=== PATIENT | male | born 1990 | race Caucasian/White ===

== ENCOUNTER 2025-01-16 21:19 | Outpatient (CLI) | payer MEDICAID, SELFPAY | END 2025-01-16 21:20 | disposition home or self-care (01) | PROVIDERS: Visit Provider Internal Medicine | DX: R41.82 Altered mental status, unspecified (principal); T48.3X1A Poisoning by antitussives, accidental (unintentional), initial encounter; Y92.9 Unspecified place or not applicable | CPT/HCPCS: A0425; A0429 ==

== ENCOUNTER 2025-01-16 21:44 | Observation (INO) | payer MEDICAID, SELFPAY ==
[2025-01-16 21:49] VITALS: BP 148/100; PULSE 130; RESP 18; TEMP 37.1; O2SAT 97; BMI 32.1
--- NOTE | 2025-01-16 22:04 | ED.NURSE ---
Called poison control and they state to watch pt for 8 hours+ until pt returns back to baseline. Doctor should order overdose labs and check an EKG. PRN benzo's should be ordered for any agitation. Possible QRS widening due to taking Seroquel and DMX together.
--- OUTSIDE RECORDS SUMMARY | 2025-01-16 22:04 | XMS_ITS | Clinical Summary ---
Author Organization [facility] Address [address] [place] [id number] Care Team Providers Care Meat Cutting Teacher Name Role Phone Taylor Lester MD Primary Care Provider Un available Allergies No known active allergies Social History Tobacco Use Types Packs/Day Years Used Date Smoking Tobacco: Never Assessed Sex and Gender Information Value Date Recorded Sex Assigned at Not on file Legal Sex Male 1:42 PM DIVERSIFIED CROPS SUPERVISOR Gender Identity Not on file Sexual Orientation Not on file Last Filed Vital Signs Vital Sign Reading Time Taken Comments Blood Pressure 155/99 07/08/2022 4:57 PM DIVERSIFIED CROPS SUPERVISOR Pulse 106 07/08/2022 4:57 PM DIVERSIFIED CROPS SUPERVISOR Temperature 37.4 C (99.3 F) 07/08/2022 1:46 PM DIVERSIFIED CROPS SUPERVISOR Respiratory Rate 15 07/08/2022 1:46 PM DIVERSIFIED CROPS SUPERVISOR Oxygen Saturation 96% 07/08/2022 4:57 PM DIVERSIFIED CROPS SUPERVISOR Inhaled Oxygen Concentration - - Weight - - Height - - Body Mass Index - - Plan of Treatment Health Maintenance Due Date Last Done Comments Hepatitis C Screening 1989 Lipid Screening 1989 Anxiety Screening (BERTHA-2) 1990 Depression Assessment (PHQ-2) 1990 COVID-19 Vaccine (2 - 2023-2 5 season) 2024 08/02/2021 Influenza Vaccine (Season Ended) 2025 Adult Tetanus Booster 08/29/2026 08/29/2016 RSV Vaccines (1 - 1-dose 75+ series) 02/29/2064 Meningococcal B Vaccine Aged Out No l onger eligible based on patient's age to complete this topic Pneumococcal Vaccine Aged Out No long er eligible based on patient's age to complete this topic Care Teams Meat Cutting Teacher Relationship Specialty Start Date End Date Taylor Lester MD PCP - General 07/08/22
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
--- OUTSIDE RECORDS SUMMARY | 2025-01-16 22:04 | XMS_ITS | Referral Summary ---
Author Organization [facility] Address [address] [place] [id number] Care Team Providers Care Sales Representative Aircraft Name Role Phone Taylor Lester MD Primary Care Provider Un available Allergies No known active allergies Social History Tobacco Use Types Packs/Day Years Used Date Smoking Tobacco: Never Assessed Sex and Gender Information Value Date Recorded Sex Assigned at Not on file Legal Sex Male 1:42 PM POST DOCTORAL RESEARCHER Gender Identity Not on file Sexual Orientation Not on file Last Filed Vital Signs Vital Sign Reading Time Taken Comments Blood Pressure 155/99 07/08/2022 4:57 PM POST DOCTORAL RESEARCHER Pulse 106 07/08/2022 4:57 PM POST DOCTORAL RESEARCHER Temperature 37.4 C (99.3 F) 07/08/2022 1:46 PM POST DOCTORAL RESEARCHER Respiratory Rate 15 07/08/2022 1:46 PM POST DOCTORAL RESEARCHER Oxygen Saturation 96% 07/08/2022 4:57 PM POST DOCTORAL RESEARCHER Inhaled Oxygen Concentration - - Weight - - Height - - Body Mass Index - - Plan of Treatment Not on file Care Teams Sales Representative Aircraft Relationship Specialty Start Date End Date Taylor Lester MD PCP - General 07/08/22
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
[2025-01-16 22:05] VITALS: O2SAT 98
--- NOTE | 2025-01-16 22:07 | ED_ITS ---
HPI - General Adult General Chief complaint: Altered Mental Status Stated complaint: AMS Time Seen by Provider: 01/16/25 21:45 History of Present Illness HPI narrative: 34-year-old male with a history of depression anxiety, alcohol use currently in a sober house. The patient reportedly was found in someone else's car, was seeming agitated. He reports that he for a cold he was taking dextromethorphan. He also takes Seroquel, trazodone, hydroxyzine. He denies drinking alcohol or Tylenol, aspirin, or other street drugs. The patient has been very cooperative he has been diaphoretic, a little bit agitated. Poison controlled was called and they felt like this would match a dextromethorphan issue, especially in light of his other medications they recommended an 8-12 hour observation. At least and IV fluid, benzodiazepines as needed. Patient denies other specific health problems. 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. Related Data Home Medications ?Medication ?Instructions ?Recorded ?Confirmed buspirone 5 mg tablet 7.5 mg PO BID 01/17/2501/17 clonidine HCl 0.1 mg tablet 0.1 mg PO BID 01/17/2504/05 hydroxyzine HCl 25 mg tablet 25 mg PO BID 01/17/2504/05 quetiapine 200 mg tablet,extended 200 mg PO ONCE PM 01/17/25 release 24 hr (Seroquel XR) trazodone 50 mg tablet 50 mg PO QHS PRN 01/17/25 Allergies Allergy/AdvReac Type Severity Reaction Status Date / Time No Known Drug Allergies Allergy Verified 01/16/25 21:54 Review of Systems Status of ROS: Reports: 6 or more systems reviewed and unremarkable except as noted in History and below [facility] Medical History (Updated 01/17/25 @ 14:31 by Charisse Macias MD) Anxiety ?F41.9 - Anxiety disorder, unspecified (ICD-10) Migraine headache (07/18/11) ?G43.909 - Migraine, unspecified, not intractable, without status migrainosus (ICD-10) Family History (Updated 01/17/25 @ 00:28 by Charisse Macias MD) Father Prostate cancer Aunt Breast cancer Mother Breast cancer Ovarian cancer Social History (Updated 01/17/25 @ 14:25 by Charisse Macias MD) Narrative: Sober from alcohol x 2 years. 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 Living in a sober house in [place]. Denies recreational drug use. What is your current living situation?: I presently have a place to live Problems where you live: no known problems Problems where you live details: n/a In the past 12 months, utilities in danger of being shut off: no In past 12 months, lack of transportation kept you from medical appts, meetings, work, or getting things needed for daily living: no In the past 12 mos, have been you worried that your food would run out before you had money to buy more?: never true In the past 12 mos, the food you bought just didn't last and you didn't have money to buy more?: never true Highest level of school completed/degree received: Master's degree Smoking Status: Current every day smoker Do you use any of these nicotine containing products: Vaping Products How often do you have a drink containing alcohol: never AUDIT-C Alcohol total score: 0 Non-prescribed substance use: denies use and other Non-prescribed substance use details: Robitussin over the counter Caffeine: Yes How often does anyone, including family, friends and others, physically hurt you : never How often does anyone, including family, friends and others, insult or talk down to you: never How often does anyone, including family, friends and others, threaten you with harm: never How often does anyone, including family, friends and others, scream or curse at you: never service: No Exam Narrative: Exam Narrative: Objective: Patient is afebrile, pulse elevated 130, he has got dry mucous membranes in the mouth he is alert orient x3 slightly agitated but very cooperative. Respirations 18 his blood pressure 148/100 O2 sat 97% on room air HEENT is unremarkable no facial asymmetry no scleral icterus mouth clear slightly dry Neck is supple Chest clear Heart tachycardic rhythm 2/6 systolic murmur Abdomen soft nontender Extremities he has got some blisters on the soles of his feet. He is neurologically nonfocal, no tremor. Const: Vital Signs, click to edit/add: Vital Signs - 24 hr 01/16/25 21:49 01/16/25 22:05 Temperature 98.8 F Pulse Rate [Right Pulse Oximeter] 130 H Respiratory Rate 18 Blood Pressure [Ri ght Upper Arm] 148/100 H Pulse Oximetry 97 98 Oxygen Delivery Me thod Room Air Course Vital Signs Vital signs: Initial Vital Signs Temperature 98.8 F 01/16/25 21:49 Temperature Source Temporal Artery Scan 01/16/25 21:49 Pulse Rate 130 H 01/16/25 21:49 Pulse Rhythm Regular 01/16/25 21:49 Pulse Strength 3+ Normal 01/16/25 21:49 Respiratory Rate 18 01/16/25 21:49 Blood Pressure 148/100 H 01/16/25 21:49 Blood Pressure Mean 116 H 01/16/25 21:49 Blood Pressure Position Sitting 01/16/25 21:49 Pulse Oximetry 97 01/16/25 21:49 Oxygen Delivery Method Room Air 01/16/25 21:49 Vital Signs Temperature 98.8 F 01/16/25 21:49 Pulse Rate 130 H 01/16/25 21:49 Respiratory Rate 18 01/16/25 21:49 Blood Pressure 148/100 H 01/16/25 21:49 Pulse Oximetry 97 01/16/25 21:49 Oxygen Delivery Method Room Air 01/16/25 21:49 Temperature 97.9 F 01/17/25 07:00 Pulse Rate 100 01/17/25 07:00 Respiratory Rate 18 01/17/25 07:00 Blood Pressure 150/83 H 01/17/25 07:00 Pulse Oximetry 95 01/17/25 07:00 Oxygen Delivery Method Room Air 01/17/25 07:00 Medications Administered Medications: Discontinued Medications Generic Name Dose Route Start Last Admin Trade Name Freq PRN Reason Stop Dose Admin Sodium Chloride 1,000 mls @ 6,000 mls/hr 01/16/25 22:15 01/16/25 23:27 0.9 % Sodium Chloride 1000 Ml IV 01/16/25 22:24 Infused .Q10M ANDREA Infusion Lorazepam 1 mg 01/16/25 22:04 01/16/25 23:00 Lorazepam 1 Mg Tablet PO 01/16/25 22:05 1 mg ONCE ONE Administration Potassium Bicarbonate 25 meq 01/17/25 00:30 01/17/25 00:56 Potassium Bicarb 25 Meq Effervescent Tab PO 01/17/25 00:31 25 meq ONCE ONE Administration Medical Decision Making MDM Narrative Medical decision making narrative: [age] year white male with a probable dextromethorphan over dose, non intentional. The patient takes other antidepressant medications. Discussing with poison Control they feel this is probably the cause of his symptoms. Will check a urine tox, serum Tylenol, aspirin, urine drug screen. Will give IV fluid, 1 mg oral benzodiazepine Ativan. Patient will need cardiac monitoring as well as an EKG laboratory studies and reassessment. I suspect we can admit him to our hospital here for observation. Given his length of need observation I think probable hospital floor be appropriate. Will discuss with hospitalist. Lab Data Labs: Lab Results 01/16/25 01/16/25 Range/Units 22:15 22:38 WBC 8.71 (4.50-11.00) K/uL RBC 5.89 (4.30-5.90) m/uL Hgb 15.5 (13.5-17.5) gm/dL Hct 47.4 (37.0-53.0) % MCV 81 (80-100) fL MCH 26 (26-34) pg MCHC 33 (32-36) gm/dL RDW Coeff of Sangeeta 15.6 H (11.5-15.5) % Plt Count 256 (140-440) K/uL Neut % (Auto) 76.3 H (42.0-72.0) % Lymph % (Auto) 17.3 L (20-44) % Ceiba % (Auto) 4.8 (0.0-11.0) % Eos % (Auto) 0.7 (0.0-7.0) % Baso % (Auto) 0.6 (0.0-3.0) % Neut # (Auto) 6.60 (1.7-7.0) K/uL Lymph # (Auto) 1.50 (0.90-2.90) K/uL Ceiba # (Auto) 0.40 (0.00-0.90) K/UL Eos # (Auto) 0.06 (0.00-0.50) K/uL Baso # (Auto) 0.05 (0.00-0.30) K/uL Abs Immat Gran (auto) 0.03 (0.00-0.30) K/uL Imm/Tot Granulo (auto) 0.3 % Sodium 143 (135-149) mmol/L Potassium 3.5 L (3.6-5.1) mmol/L Chloride 114 (96-114) mmol/L Carbon Dioxide 23 (20-32) mmol/L Anion Gap 6 L (7-15) mEq/L BUN 39 H (5-24) mg/dL Creatinine 0.9 (0.5-1.5) mg/dL Estimated Creat Clear 122.01 Estimated GFR 114 ml/min Glucose 150 H (60-115) mg/dL Lactate 1.0 (0.5-1.9) mmol/L Calcium 9.5 (8.4-10.6) mg/dL Total Bilirubin 0.6 (0.1-1.5) mg/dL Direct Bilirubin 0.3 (0.0-0.5) mg/dL AST 43 H (12-35) U/L ALT 36 (4-50) U/L Alkaline Phosphatase 80 (40-150) U/L C-Reactive Protein < 0.5 L (0.5-1.0) mg/dL Total Protein 7.8 (6.0-8.3) g/dL Albumin 4.9 (3.3-5.0) g/dL Salicylates < 1.0 L (1.0-10) mg/dL Urine Opiates Screen Negative (Negative) Ur Oxycodone Screen Negative (Negative) Urine Methadone Screen Negative (Negative) Acetaminophen < 10.0 (10.0-30.0) ug/mL Ur Barbiturates Screen Negative (Negative) U Tricyclic Antidepress Negative (Negative) Ur Phencyclidine Scrn Negative (Negative) Ur Amphetamines Screen Negative (Negative) U Methamphetamines Scrn Negative (Negative) U Benzodiazepines Scrn Negative (Negative) Urine Cocaine Screen Negative (Negative) U Marijuana (THC) Screen Negative (Negative) Ur Drug Screen Comment See Note Ethyl Alcohol < 0.01 (0.01-0.03) % Discharge Plan Discharge Condition: Improved Activity Level: No Restrictions Discharge Diet: Regular
[2025-01-16 22:24] LABS: Basophils Absolute Auto 0.05 K/uL (0.00-0.30); Basophils Percent Auto 0.6 % (0.0-3.0); Eosinophils Absolute Auto 0.06 K/uL (0.00-0.50); Eosinophils Percent Auto 0.7 % (0.0-7.0); Hematocrit 47.4 % (37.0-53.0); Hemoglobin* 15.5 gm/dL (13.5-17.5); Immature Granulocytes Abs Auto 0.03 K/uL (0.00-0.30); Immature Granulocytes Pct Auto 0.3 %; Lymphocytes Percent Auto 17.3 % (20-44); Mean Corpuscular HGB Conc 33 gm/dL (32-36); Mean Corpuscular Hemoglobin 26 pg (26-34); Mean Corpuscular Volume 81 fL (80-100); Monocytes Percent Auto 4.8 % (0.0-11.0); Neutrophils Percent Auto 76.3 % (42.0-72.0); Platelet Count* 256 K/uL (140-440); RDW Coefficient of Variation % 15.6 % (11.5-15.5); Red Blood Count 5.89 m/uL (4.30-5.90); White Blood Count* 8.71 K/uL (4.50-11.00)
[2025-01-16 22:27] VITALS: PULSE 110; RESP 14; O2SAT 96
[2025-01-16 22:27] LABS: Slide Review Reflex No
[2025-01-16 22:30] VITALS: PULSE 111; RESP 18; O2SAT 96
[2025-01-16 22:35] VITALS: BP 139/93
[2025-01-16 22:36] LABS: Albumin* 4.9 g/dL (3.3-5.0); Chloride* 114 mmol/L (96-114)
[2025-01-16 22:37] LABS: Potassium* 3.5 mmol/L (3.6-5.1); Sodium* 143 mmol/L (135-149)
[2025-01-16 22:39] LABS: Blood Urea Nitrogen* 39 mg/dL (5-24); Creatinine* 0.9 mg/dL (0.5-1.5); Est. Creatinine Clearance* 122.01; Estimated Glomerular Filt Rate 114 ml/min
[2025-01-16 22:40] LABS: Alanine Aminotransferase* 36 U/L (4-50); Alkaline Phosphatase* 80 U/L (40-150); Aspartate Amino Transferase* 43 U/L (12-35); Bilirubin Direct* 0.3 mg/dL (0.0-0.5); Bilirubin Total* 0.6 mg/dL (0.1-1.5); Calcium* 9.5 mg/dL (8.4-10.6); Carbon Dioxide* 23 mmol/L (20-32); Glucose* 150 mg/dL (60-115); Total Protein* 7.8 g/dL (6.0-8.3)
[2025-01-16 22:46] LABS: Acetaminophen* < 10.0 ug/mL (10.0-30.0); Anion Gap 6 mEq/L (7-15); C Reactive Protein* < 0.5 mg/dL (0.5-1.0); Ethanol* < 0.01 % (0.01-0.03); Salicylate* < 1.0 mg/dL (1.0-10)
[2025-01-16 22:54] LABS: Amphetamine Screen Urine Negative (Negative); Barbiturate Screen Urine Negative (Negative); Benzodiazepines Screen Urine Negative (Negative); Cannabinoid Screen Urine Negative (Negative); Cocaine Screen Urine Negative (Negative); Methadone Screen Urine Negative (Negative); Methamphetamines Screen Urine Negative (Negative); Opiate Screen Urine Negative (Negative); Oxycodone Screen Urine Negative (Negative); Phencyclidine Screen Urine Negative (Negative); Tricyclic Antidepressant Urine Negative (Negative)
[2025-01-16] MEDS: 0.9 % SODIUM CHLORIDE 1000 ml 1,000 ML 6000 ML IV (22:59)
[2025-01-16] MEDS: LORazepam 1 MG TABLET PO (23:00)
--- NOTE | 2025-01-17 00:25 | P.IMHP_ITS ---
Assessment and Plan Assessment and plan (1) Poisoning by dextromethorphan: Status: Acute (2) Toxic encephalopathy: Status: Acute (3) Agitation: Status: Acute (4) Noncompliance with medications: Status: Acute Plan 34 y/o male with h/o alcohol abuse who was noncompliant with both prescription and OTC medications, overdosing on these causing toxic encephalopathy and agitation. He was also tachycardic. These symptoms have resolved and he appears to be back to his usual self. He denies thoughts of self-harm or suicidal ideation. He contracts for safety. I have spoken with poison Control who recommends monitoring on cardiac telemetry for 4 more hours and an EKG in 2 more hours. I have also ordered a social work consult for the morning. Hospitalist- H&P: HPI History of Present Illness Time Seen by Provider: 23:57 Date Seen: 01/16/25 Chief complaint: AMS Narrative: Boyd Krishnan is a 34 year old male with h/o anxiety and 2 years sobriety from alcohol presented through the emergency department tonight for confusion and agitation. He was apparently found in someone's car quite agitated and the police were called. He tells me that when he was drinking many years ago he used to have periods where he would black out, but he had never had anything like what he experienced today. He ran out of his BuSpar and trazodone 3 days ago and has had trouble getting them through [employer], the sobriety program he is in. He tells me that they should be in by Saturday. Because of running out of those medications he has felt off his routines and had trouble sleeping. He also has a cold and started taking dextromethorphan for that. Last night he took at least double his usual dose of seroquel, hoping it would help him sleep. Because he was off my routines, he does not know how much of his other medications or dextromethorphan he took, but acknowledges it was likely more than it should have been. He repeatedly told me that he felt really confused and off my routines over the last 2-3 days, and that this was much worse today. He recalls walking to the [employer] and then to [place]. He says people seemed weird and it seemed like he was in a story in that things were not real. He denies any blackouts and said that he recalls everything. He felt anxious, scared, and paranoid. Then at 1 point he found himself in someone's house and then the police were called and put him in handcuffs. By the time the nurse chemical dependency came and brought him to the emergency department, he felt like he was finally deescalating and becoming himself, in touch with reality again. Now he feels back to his usual self. He denies any thoughts of self-harm or suicide. He was not trying to harm himself by taking extra Seroquel, only trying to get s ome sleep. He notes that he has intensive outpatient therapies Saturday through with the program that he is in. His primary therapist is Tran Chaparro, and that he would definitely be discussing this episode with his therapists this week. Review of Systems Status of ROS: Reports: 10 or more systems reviewed and unremarkable except as noted in History and below Medical Decision Making Medical Decision Making Code Status: FULL CODE [facility] Medical History (Updated 01/17/25 @ 14:31 by Charisse Macias MD) Anxiety ?F41.9 - Anxiety disorder, unspecified (ICD-10) Migraine headache (07/18/11) ?G43.909 - Migraine, unspecified, not intractable, without status migrainosus (ICD-10) Family History (Updated 01/17/25 @ 00:28 by Charisse Macias MD) Father Prostate cancer Aunt Breast cancer Mother Breast cancer Ovarian cancer Social History (Updated 01/17/25 @ 14:25 by Charisse Macias MD) Narrative: Sober from alcohol x 2 years. 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 Living in a sober house in [place]. Denies recreational drug use. What is your current living situation?: I presently have a place to live Problems where you live: no known problems Problems where you live details: n/a In the past 12 months, utilities in danger of being shut off: no In past 12 months, lack of transportation kept you from medical appts, meetings, work, or getting things needed for daily living: no In the past 12 mos, have been you worried that your food would run out before you had money to buy more?: never true In the past 12 mos, the food you bought just didn't last and you didn't have money to buy more?: never true Highest level of school completed/degree received: Master's degree Smoking Status: Current every day smoker Do you use any of these nicotine containing products: Vaping Products How often do you have a drink containing alcohol: never AUDIT-C Alcohol total score: 0 Non-prescribed substance use: denies use and other Non-prescribed substance use details: Robitussin over the counter Caffeine: Yes How often does anyone, including family, friends and others, physically hurt you : never How often does anyone, including family, friends and others, insult or talk down to you: never How often does anyone, including family, friends and others, threaten you with harm: never How often does anyone, including family, friends and others, scream or curse at you: never service: No Meds Home Medications and Allergies Home Medications ?Medication ?Instructions ?Recorded ?Confirmed ?Type buspirone 5 mg tablet 7.5 mg PO BID 01/17/2501/17 History clonidine HCl 0.1 mg tablet 0.1 mg PO BID 01/17/2504/05 History hydroxyzine HCl 25 mg tablet 25 mg PO BID 01/17/2504/05 History quetiapine 200 mg tablet,extended 200 mg PO ONCE PM 01/17/25 History release 24 hr (Seroquel XR) trazodone 50 mg tablet 50 mg PO QHS PRN 01/17/25 History Allergies Allergy/AdvReac Type Severity Reaction Status Date / Time No Known Drug Allergies Allergy Verified 01/16/25 21:54 Exam Narrative: Exam Narrative: General: No acute distress. Awake alert oriented x3. No diaphoresis. No tremor. HEENT: Normocephalic atraumatic, pupils equally round and reactive to light and accommodation. Oropharynx clear. Mucous membranes are moist. No cervical lymphadenopathy, thyromegaly or carotid bruits. No JVD. Cardiovascular: Regular rate and rhythm. No murmurs, gallops, or rubs. Chest: No increased work of breathing. Clear to auscultation bilaterally. No crackles or wheezes. Abdomen: Bowel sounds present. Soft, nondistended, nontender. No hepatosplen omegaly or masses. Extremities: No edema, no cyanosis or clubbing. Skin: No jaundice, no pallor, no rashes on visible skin. Neuro: Grossly intact. No focal deficits. Const: Vital Signs, click to edit/add: Vital Signs - 24 hr 01/16/25 21:49 01/16/25 22:05 01/16/25 22:27 Temperature 98.8 F Pulse Rate 110 H Pulse Rate [Right Pulse Oximeter] 130 H Respiratory Rate 18 14 Blood Pressure Blood Pressure [Ri ght Upper Arm] 148/100 H Pulse Oximetry 97 98 96 Oxygen Delivery [facility] 01/16/25 22:30 01/16/25 22:35 Temperature Pulse Rate 111 H Pulse Rate [Right Pulse Oximeter] Respiratory Rate 18 Blood Pressure 139/93 H Blood Pressure [Ri ght Upper Arm] Pulse Oximetry 96 Oxygen Delivery [facility] Hospitalist - H&P: Result Labs Labs: Short CBC 01/16/25 Range/Units 22:15 WBC 8.71 (4.50-11.00) K/uL Hgb 15.5 (13.5-17.5) gm/dL Hct 47.4 (37.0-53.0) % Plt Count 256 (140-440) K/uL BMP 01/16/25 22:15 Sodium 143 Potassium 3.5 L Chloride 114 Carbon Dioxide 23 BUN 39 H Creatinine 0.9 Glucose 150 H Calcium 9.5 Liver Function 01/16/25 Range/Units 22:15 Total Bilirubin 0.6 (0.1-1.5) mg/dL Direct Bilirubin 0.3 (0.0-0.5) mg/dL AST 43 H (12-35) U/L ALT 36 (4-50) U/L Alkaline Phosphatase 80 (40-150) U/L Albumin 4.9 (3.3-5.0) g/dL 01/16/2025 EKG: Sinus tachycardia, 110 beats per minute, possible left atrial enlargement, left anterior fascicular block. QTC interval 462 milliseconds.
[2025-01-17 00:49] VITALS: BP 137/99; PULSE 105; RESP 18; TEMP 36.6; O2SAT 96
[2025-01-17 00:56] VITALS: O2SAT 96
[2025-01-17] MEDS: POTASSIUM BICARB 25 MEQ EFFERVESCENT TAB PO (00:56)
[2025-01-17 03:25] VITALS: BP 145/100; PULSE 70; RESP 18; TEMP 36.6; O2SAT 98
[2025-01-17 04:54] VITALS: BMI 32.5
--- NOTE | 2025-01-17 06:21 | PC.NURSE ---
arrived to the floor at 2340 via wheelchair. A&O pleasant and cooperative. Denies pain. Pt reports some anxiety going along with the events that occurred last evening but able to settle in room and get some sleep. Up at jennifer. Using call light appropriately.
[2025-01-17 06:37] LABS: Potassium* 3.7 mmol/L (3.6-5.1)
[2025-01-17 07:00] VITALS: BP 150/83; PULSE 100; PULSE 90; RESP 18; TEMP 36.6; O2SAT 95
--- NOTE | 2025-01-17 10:05 | PM.DS1 ---
DS: Providers Provider Date Seen: 01/17/25 Date of admission: 01/16/25 23:36 Primary care physician: Not a Local Provider Admitting Clinician: Charisse Macias MD Consults: 01/17/25 00:27 Consult to Child Care Specialist [CONS] Routine Comment: Reason for Consult:: Social Service Consult Attending Physician on discharge: Juan Stockton MD Date of Discharge: 01/17/25 DS: Summary Hospital Course Hospital Course: ED HPI: 34-year-old male with a history of depression anxiety, alcohol use currently in a sober house. The patient reportedly was found in someone else's car, was seeming agitated. He reports that he for a cold he was taking dextromethorphan. He also takes Seroquel, trazodone, hydroxyzine. He denies drinking alcohol or Tylenol, aspirin, or other street drugs. The patient has been very cooperative he has been diaphoretic, a little bit agitated. Poison controlled was called and they felt like this would match a dextromethorphan issue, especially in light of his other medications they recommended an 8-12 hour observation. At least and IV fluid, benzodiazepines as needed. Patient denies other specific health problems. 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 Poison control was contacted and observation completed. He reports being completely asymptomatic at this time. Additional history: Patient has a history of alcoholism and went through treatment 2 years ago. He reports being sober since that time. He has a longstanding history of abuse of dextromethorphan and has had many emergency department visits for this over the years. He went through treatment for that about 6 months ago. He reports no ideation or intent of self-harm. He is currently living in a sober house in [place]. Status at Discharge Overall status at discharge: patient is back to baseline Time Spent with Patient Time attestation: Total time spent providing and/or coordinating discharge services: 45 minutes Time spent: Greater than 30 minutes Specific discharge activities: Reviewing outside records and discussing with patient ongoing evaluation and management of substance use disorder Exam Narrative: Exam Narrative: He is alert appears in no distress. Speech is fluent. He is oriented to his circumstances. Breathing is unlabored. He moves all 4 extremities well. Const: Vital Signs, click to edit/add: Vital Signs - 24 hr 06/07/25 21:49 01/16/25 22:05 01/16/25 22:27 Temperature 98.8 F Pulse Rate 110 H Pulse Rate [Pulse Oximeter] Pulse Rate [Right Pulse Oximeter] 130 H Respiratory Rate 18 14 Blood Pressure Blood Pressure [Le ft Arm] Blood Pressure [Ri ght Upper Arm] 148/100 H Pulse Oximetry 97 98 96 Oxygen Delivery Me thod Room Air 01/16/25 22:30 01/16/25 22:35 01/17/25 00:49 Temperature 97.8 F Pulse Rate 111 H Pulse Rate [Pulse Oximeter] 105 H Pulse Rate [Right Pulse Oximeter] Respiratory Rate 18 18 Blood Pressure 139/93 H Blood Pressure [Le ft Arm] 137/99 H Blood Pressure [Ri ght Upper Arm] Pulse Oximetry 96 96 Oxygen Delivery Me thod Room Air 01/17/25 00:56 01/17/25 03:25 Temperature 97.9 F Pulse Rate Pulse Rate [Pulse Oximeter] 70 Pulse Rate [Right Pulse Oximeter] Respiratory Rate 18 Blood Pressure Blood Pressure [Le ft Arm] 145/100 H Blood Pressure [Ri ght Upper Arm] Pulse Oximetry 96 98 Oxygen Delivery Me thod Room Air Documenting provider has reviewed patient's vital signs: yes DS: Data Data Completed and Pending Labs on day of discharge: Labs from last 24 hours 01/17/25 01/16/25 01/16/25 05:39 22:38 22:15 WBC 8.71 RBC 5.89 Hgb 15.5 Hct 47.4 MCV 81 MCH 26 MCHC 33 RDW Coeff of Sangeeta 15.6 H Plt Count 256 Neut % (Auto) 76.3 H Lymph % (Auto) 17.3 L [place] % (Auto) 4.8 Eos % (Auto) 0.7 Baso % (Auto) 0.6 Neut # (Auto) 6.60 Lymph # (Auto) 1.50 [place] # (Auto) 0.40 Eos # (Auto) 0.06 Baso # (Auto) 0.05 Abs Immat Gran (auto) 0.03 Imm/Tot Granulo (auto) 0.3 Sodium 143 Potassium 3.7 3.5 L Chloride 114 Carbon Dioxide 23 Anion Gap 6 L BUN 39 H Creatinine 0.9 Estimated Creat Clear 122.01 Estimated GFR 114 Glucose 150 H Lactate 1.0 Calcium 9.5 Total Bilirubin 0.6 Direct Bilirubin 0.3 AST 43 H ALT 36 Alkaline Phosphatase 80 C-Reactive Protein < 0.5 L Total Protein 7.8 Albumin 4.9 Salicylates < 1.0 L Urine Opiates Screen Negative Ur Oxycodone Screen Negative Urine Methadone Screen Negative Acetaminophen < 10.0 Ur Barbiturates Screen Negative U Tricyclic Antidepress Negative Ur Phencyclidine Scrn Negative Ur Amphetamines Screen Negative U Methamphetamines Scrn Negative U Benzodiazepines Scrn Negative Urine Cocaine Screen Negative U Marijuana (THC) Screen Negative Ur Drug Screen Comment See Note Ethyl Alcohol < 0.01 Discharge Plan Discharge Disposition: Home, Self-Care Date of Admission: 01/16/25 23:36 Attending Provider on Discharge: Xiang Stockton Primary Care Provider: Provider,Not a Local Condition: Improved Anticipated Discharge Date/Time: 01/17/25 10:10 Discharge Medications: Continued buspirone 5 mg tablet 7.5 mg PO BID quetiapine [Seroquel XR] 200 mg tablet extended release 24 hr 200 mg PO ONCE PM Rx Instructions: administer on day 3 of therapy trazodone 50 mg tablet 50 mg PO QHS PRN hydroxyzine HCl 25 mg tablet 25 mg PO BID clonidine HCl 0.1 mg tablet 0.1 mg PO BID Discharge Orders: Discharge Order (Routine); Ordered 01/17/25 Ordered By: Xiang Stockton Additional Instructions: I recommend you consider ongoing outpatient assistance with maintaining sobriety from both alcohol and dextromethorphan. Activity Level: No Restrictions Discharge Diet: Regular Follow Up Appointments: Provider,Not a Local [Primary Care Provider, Family Practice] Forms: [facility] Info Instructions
== END 2025-01-17 11:55 | disposition home or self-care (01) ==
LOC: ED 22:02 → MEDSURG 23:36
PROVIDERS: Admitting Provider Family Medicine; Emergency Provider Family Medicine; Visit Provider Family Medicine
DX: T48.3X1A Poisoning by antitussives, accidental (unintentional), initial encounter (principal); G92.9 Unspecified toxic encephalopathy; R45.1 Restlessness and agitation; Z91.148 Patient's other noncompliance with medication regimen for other reason; R00.0 Tachycardia, unspecified; F41.9 Anxiety disorder, unspecified; Z72.0 Tobacco use; F19.90 Other psychoactive substance use, unspecified, uncomplicated
CPT/HCPCS: 36415; 80048; 80076; 80143; 80179; 80306; 82077; 83605; 84132; 85025; 86140; 93005; 94761; 99285; A9270; G0378; J7030

== ENCOUNTER 2025-08-11 00:58 | Emergency (ER) | payer MEDICAID, SELFPAY ==
--- OUTSIDE RECORDS SUMMARY | 2025-08-11 01:00 | XMS_ITS | Clinical Summary ---
Author Organization [facility] Address [facility] [place] [address] Care Team Providers Care Office Automation Technician Name Role Phone No Ref-Primary, Physician Primary Care Provider Allergies No known active allergies Medications * This document contains information received from the source organization and may not represent a complete record from that organization. No known medications Active Problems ProblemNoted DateDiagnosed DateElevated blood-pressure reading, without diagnosis of dhmvqcrsukxo55/06/2017Burn of second degree of left lower leg, initial /06/2017Migraine foxgsoen37/07/2011 Overview (09/02/2022): BUTALBITAL COMPOUND W/CODEINE 24-15-584-40 mg FH: Father Social History Tobacco UseTypesPacks/DayYears UsedDateSmoking Tobacco: Never AssessedAdolescent EducationAnswerDate RecordedGetting School Help NeededNot on file05/04/2023Sex and Gender InformationValueDate RecordedSex Assigned at BirthNot on fileLegal LgtIwvv1209/02/2022 12:40 PM CSTGender IdentityNot on fileSexual OrientationNot on file Last Filed Vital Signs Vital SignReadingTime TakenCommentsBlood Hudgjodo944/9310/08/2023 5:43 PM [facility] Lbxxj82916/27/2024 5:43 PM VRUCuakyfvzopb49.3 ??C (99.2 ??F)10/08/2023 5:43 PM CSTRespiratory Vizu484610/08/2023 5:43 PM CSTOxygen Biwbdeirhh96%10/08/2023 5:43 PM CSTInhaled Oxygen Concentration--Izbddu889.3 kg (230 lb)10/08/2023 5:43 PM LVMIehmto402.3 cm (5' 11)10/08/2023 5:43 PM CSTBody Mass Index32.0810/08/2023 5:43 PM [facility] SE[facility]ER Plan of Treatment Health MaintenanceDue DateLast DoneCommentsADVANCE CARE ZBHTTAOR1989ANNUAL REVIEW OF HM OEMXIF26 1989YEARLY PREVENTIVE VISIT02/29/1992HIV SCREENING 02/29/2004HEPATITIS C EFVAVLLFS55/20/2007PHQ-2 (once per calendar year) 5COVID-19 VACCINE ( season)/, 08/02/2021, 11/12/2020, Additional history existsINFLUENZA VACCINE (#1)/, 08/25/2009DIABETES TIJTMKEZI32/22/189231/3DTAP/TDAP/TD VACCINE (8 - Td or Tdap)/, 08/29/2016, 08/25/2002, Additional history exists ZOSTER VACCINE (1 of 2)2039HEPATITIS B DDFWWTYQnywzmgzl68/02/2001, 03/20/2000, 01/26/2000HPV VACCINE (No Doses Required)CompletedMENINGITIS VACCINE Aged OutNo longer eligible based on patient's age to complete this topic PNEUMOCOCCAL VACCINE: PEDIATRICS (0 to 5 YEARS) AND AT-RISK PATIENTS (6 to 49 YEARS)Aged OutNo longer eligible based on patient's age to complete this topic Procedures Procedure NamePriorityDate/TimeAssociated DiagnosisCommentsCOMPREHENSIVE METABOLIC UCCCHNWGS83/22/2023 12:59 PM [facility]LLAR SEWER from Last 3 Months or Most Recently Relevant to Health Maintenance Results * (ABNORMAL) Comprehensive metabolic panel (09/02/2022 12:59 PM COLLAR SEWER)Component ValueRef RangeTest MethodAnalysis TimePerformed AtPathologist SignatureSodium 914477 - 145 mmol/L09/02/2022 1:25 PM [facility] LABORATORYPotassium3.53.4 - 5.3 mmol/L09/02/2022 1:25 PM [facility] JMLATOUGEDAvafhfiz54689 - 107 mmol/L 09/02/2022 1:25 PM [facility] LABORATORYCarbon Dioxide (CO2)2422 - 29 mmol/L 09/02/2022 1:25 PM [facility] LABORATORYAnion Kjd972 - 15 mmol/L09/02/2022 1:25 PM [facility] LABORATORYUrea Wkjrnnju88.1(H)6.0 - 20.0 mg/dL09/02/2022 1:25 PM [facility] LABORATORYCreatinine0.970.67 - 1.17 mg/dL09/02/2022 1:25 PM [facility] OYQRTXDCTQUubuljy30.2(H)8.6 - 10.0 mg/dL09/02/2022 1:25 PM [facility] WEALUYVXZYIokhhil938(H)70 - 99 mg/dL09/02/2022 1:25 PM [facility] LABORATORYAlkaline Qfsetoyvlcr2480 - 129 U/L09/02/2022 1:25 PM [facility] HCTCMKSEBUCUC4503 - 50 U/L09/02/2022 1:25 PM [facility] BGMUZJSKLYZMI7980 - 50 U/L09/02/2022 1:25 PM [facility] LABORATORYProtein Total7.86.4 - 8.3 g/dL 09/02/2022 1:25 PM [facility] LABORATORYAlbumin4.93.5 - 5.2 g/dL09/02/2022 1:25 PM [facility] LABORATORYBilirubin Total0.3<=1.2 mg/dL09/02/2022 1:25 PM [facility] LABORATORYGFR Estimate>90>60 mL/min/1.34y40109/02/2022 1:25 PM [facility] LABORATORYComment:Effective August 01, 2021 eGFRcr in adults is calculated using the 2020 CKD-EPI creatinine equation which includes age and gender (Melita et al., NEJM, DOI: 10.1056/WEZIdh9386964)Specimen (Source) Anatomical Location / LateralityCollection Method / VolumeCollection Time Received TimeBloodBLOOD SPECIMEN / UnknownVenipuncture / Eecvduv6609/02/2022 12:59 PM CST09/02/2022 1:00 PM COLLAR SEWER Narrative Authorizing ProviderResult TypeResult StatusHank Lucio MDLAB - BLOOD ORDERABLESFinal ResultPerforming OrganizationAddressCity/State/ZIP CodePhone Number [facility] [address] [place] [address], [facility] [phone] from Last 3 Months or Most Recently Relevant to Health Maintenance Insurance * Guarantor: Boyd Schaeffer TypeRelation to Patient Date of BirthPhoneBilling AddressPersonal/MaymwyRlew1990 [address] [place] [address] * Guarantor: Boyd Schaeffer TypeRelation to Patient Date of BirthPhoneBilling AddressPersonal/SewbgtAals1990 [address] [address] * Guarantor: Boyd Schaeffer TypeRelation to Patient Date of BirthPhoneBilling DlmdbdtVlgmyegdelAyne1990 [address] [place] [address] [place] [address] Care Teams Team MemberRelationshipSpecialtyStart DateEnd Date No Ref-Primary, Physician PCP - General10/08/23
--- OUTSIDE RECORDS SUMMARY | 2025-08-11 01:00 | XMS_ITS | Clinical Summary ---
Author Organization [facility] Address [address] [place] [address] Care Team Providers Care Solid Fiber Paster Operator Name Role Phone No Primary/Referring, Phy Primary Care Provider Unavailable Source Comments You are receiving this document as you are listed as the primary care provider,follow-up provider, or the patient has been referred to you for consultation.This is in compliance with the Medicare andPaul[facility] County Hospitalcaid EHR Incentive Program,which states Providers who transition their patient to another setting of careor provider of care or refers their patient to another provider of care shouldprovide summary care record for each transition of care or referral. UIEvolution Allergies No known active allergies Medications No known medications Active Problems ProblemNoted DateDiagnosed DateToxic exaqvaecmxgjeg13/23/2023Poisoning by ymnhuujsmmaydvsw01/23/2023Burn of second degree of left lower leg, initial ybgnzycqc90/06/2017Elevated blood-pressure reading, without diagnosis of xyfpuuisoduq81/06/2017Migraine afhdggwk54/07/2011 Overview (07/04/2023): BUTALBITAL COMPOUND W/CODEINE 05-36-691-40 mg FH: Father BUTALBITAL COMPOUND W/CODEINE 53-35-098-40 mg FH: Father Immunizations ImmunizationAdministration DatesNext DueInfluenza IIV4 (Quadrivalent) 0.5mL (78256)07/24/2022Moderna Bivalent 12+07/24/2022Moderna Monovalent 12+08/02/2021 Tdap12/06/2021,08/29/2016 Social History Tobacco UseTypesPacks/DayYears UsedDateSmoking Tobacco: Never Assessed Humiliation, Afraid, Rape, and Kick questionnaireAnswerDate RecordedFear of Current or Ex-PartnerNot on file10/02/2023Emotionally AbusedNot on file 10/02/2023Within the last year, have you been kicked, hit, slapped, or otherwise physically hurt by your partner or ex-partner?Patient unable to ywmtke5310/02/2023 Within the last year, have you been raped or forced to have any kind of sexual activity by your partner or ex-partner?Patient unable to lszigp9710/02/2023Sex and Gender InformationValueDate RecordedSex Assigned at BirthNot on fileLegal Sex Male12/06/2021 4:03 PM CDTGender IdentityNot on fileSexual OrientationNot on file Last Filed Vital Signs Vital SignReadingTime TakenCommentsBlood Jkpedvid820/9910/02/2023 2:45 PM [employer] [employer] Nkzow196810/02/2023 2:45 PM PHHKegshoqpuxe83.9 ??C (98.4 ??F)10/02/2023 10:36 AM CSTRespiratory Nvps084610/02/2023 12:45 PM CSTOxygen Jxjftflswt02%10/02/2023 2:45 PM CSTInhaled Oxygen Concentration--Oljksa30.8 kg (220 lb)03/31/2023 9:59 PM CDT Nbiqgb173.3 cm (5' 11)03/31/2023 9:48 PM CDTBody Mass Index30.68003/31/2023 9:48 PM CDT Plan of Treatment Health MaintenanceDue DateLast DoneCommentsHep C Screening (Preventive Services) 1989HIV Screening (Preventive Services)2005Adult Preventive Visit 2007HepB Vaccine (1)02/29/20080207Wbqsvzizrsq17/20/2024COVID-19 Vaccine ( season)5109/24/2021, 08/02/2021Influenza Vaccine (#1)2025 2DTaP/Tdap/Td Vaccine (3 - Tdap)/, 08/29/2016 Zoster/Shingles Vaccine (1 of 2)2039HPV Vaccine (No Doses Required) CompletedHepA VaccineAged OutNo longer eligible based on patient's age to complete this topicHib VaccineAged OutNo longer eligible based on patient's age to complete this topicIPV (Polio) VaccineAged OutNo longer eligible based on patient's age to complete this topicMCV4 VaccineAged OutNo longer eligible based on patient's age to complete this topicMeningococcal B VaccineAged OutNo longer eligible based on patient's age to complete this topicPneumococcal VaccineAged OutNo longer eligible based on patient's age to complete this topic Insurance * Guarantor: Boyd Schaeffer TypeRelation to Patient Date of BirthPhoneBilling AddressPersonal/KpsysiVpif1990 [phone] [address] * Guarantor: Boyd Schaeffer TypeRelation to Patient Date of BirthPhoneBilling AddressPersonal/WtjurbDkte1990 [address]URNED MAIL [phone] [address] * Guarantor: Boyd Schaeffer TypeRelation to Patient Date of BirthPhoneBilling AddressPersonal/YnzmjaWmvq1990 [address]IL [phone] [address] Care Teams Team MemberRelationshipSpecialtyStart DateEnd Date No Primary/Referring, Magalys PCP - Pyzfrif19/25/23
--- OUTSIDE RECORDS SUMMARY | 2025-08-11 01:00 | XMS_ITS | Clinical Summary ---
Author Organization [facility] Address [address] [place] [id number] Care Team Providers Care Jd Edwards Name Role Phone Taylor Lester MD Primary Care Provider Un available Allergies No known active allergies Social History Tobacco UseTypesPacks/DayYears UsedDateSmoking Tobacco: Never AssessedSex and Gender InformationValueDate RecordedSex Assigned at BirthNot on fileLegal Sex Male07/08/2022 1:42 PM CSTGender IdentityNot on fileSexual OrientationNot on file Last Filed Vital Signs Vital SignReadingTime TakenCommentsBlood Glywryja343/9907/08/2022 4:57 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 Fedcq20082/27/2022 4:57 PM IEWBejgtkgzrvt29.4 ??C (99.3 ??F)07/08/2022 1:46 PM CSTRespiratory Ncca680809/07/2021 1:46 PM CSTOxygen Zmtxqypwsn63%07/08/2022 4:57 PM CSTInhaled Oxygen Concentration--Weight--Height--Body Mass Index-- Plan of Treatment Health MaintenanceDue DateLast DoneCommentsHepatitis C Vgfdxdovr1989Lipid Tkzkrsckg1989Anxiety Screening (BERTHA-2)1990Depression Assessment (PHQ-2)1990HPV Vaccine (1 - 3-dose SCDM series)02/29/2016COVID-19 Vaccine ( - season)Influenza Vaccine (#1)2025dult Tetanus Myieydq64/RSV Vaccines (1 - 1-dose 75+ series) 02/29/2064Meningococcal B VaccineAged OutNo longer eligible based on patient's age to complete this topicPneumococcal VaccineAged OutNo longer eligible based on patient's age to complete this topic Care Teams Team MemberRelationshipSpecialtyStart DateEnd Date Taylor Lester MD PCP - Uqvsvzl95/27/22
--- OUTSIDE RECORDS SUMMARY | 2025-08-11 01:00 | XMS_ITS | Clinical Summary ---
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 Maximum of 3200 mg in 24 hours. 30 tablet ctive QUEtiapine 100 mg tablet Take 2 Tablets (200 mg) by mouth at bedtime.5Active traZODone 50 mg tablet Take 1 Tablet (50 mg) by mouth at bedtime.5Active hydrOXYzine HCL 50 mg tablet Take 50 mg (1 tablet) by mouth four times daily as wutfcz185Active busPIRone 7.5 mg tablet Take 5 mg (1 tablet) by mouth up to 4 times per day as needed.5Active cloNIDine 0.1 mg 12HR extended release tablet Take 1 Tablet (0.1 mg) by mouth 2 times daily at 8 AM and 10 PM.5Active ykybtjm-fzumtsyo-nsmcirmxjn-codeine (104-89-68-30 mg) (Butalbital Compound W/Codeine) 551-56-21-30 mg capsule Indications:Migraine with aura, not intractable, without status migrainosusTake 1 Capsule by mouth every 4 hours if needed for Pain or Headache. Max 6 capsules per day. 25 Capsule 5Active Active Problems ProblemNoted DateDiagnosed XtjoBynspxg40/26/2024Elevated blood-pressure reading, without diagnosis of nltguhmprsck58/06/2017Migraine, unspecified, without mention of intractable migraine without mention of status /07/2011 Overview (03/10/2013): BUTALBITAL COMPOUND W/CODEINE 78-44-176-40 mg FH: Father Resolved Problems ProblemNoted DateDiagnosed DateResolved DatePoisoning by dextromethorphan /Toxic wxpbjspagpyakc39urn of second degree of left lower leg, initial qtnperawg95 Immunizations ImmunizationAdministration DatesNext DueCOVID-19 vaccine (Moderna 50mcg/0.5mL) 12YO+ BIVALENT PF, MDV12COVID-19 vaccine (Moderna Booster 50mcg/0.25mL) PF, MDV14823EHaJ06/08/1994,09/02/1990,1989,1989,1989 Hepatitis B, Xybssxsghju17/02/2001,03/20/2000,01/26/2000Hib Conjugate, Nalovilspwm94/30/1990Influenza, TSW26709/24/2021MMR01/26/2000,06/10/1990Polio Virus, Djztntybtjb98/08/1994,03/09/1991,1989,1989Td (Age >=7 Years) 08/25/2002Tdap12/06/2021,08/29/2016Varicella Uomfbbq4303/24/2007,05/22/1996 Family History Medical HistoryRelationNameCommentsCancerFatherP, likely prostateCancer-breast Maternal AuntGood HealthMaternal GrandfatherCancerMaternal Grandmother Hfcser-pcojdlFptkhsJojpsx-qynqdngOrkypeOvkxclnoJaaxDrxmjnBkaobshvNkvccuRkuunkhn Maternal AuntDeceasedMaternal GrandfatherDeceasedMaternal GrandmotherDeceased MotherDeceased Social History Tobacco UseTypesPacks/DayYears UsedDateSmoking Tobacco: NeverSmokeless Tobacco: NeverAlcohol UseStandard Drinks/WeekCommentsNot Currently0 (1 standard drink = 0.6 oz pure alcohol)Over 1 year - 03/06/24PHQ-2AnswerDate RecordedPHQ-2 TOTAL WXFVS241Social ConnectionsAnswerDate RecordedDo you often feel lonely or isolated from those around you?Financial Resource StrainAnswerDate RecordedDifficulty of Paying Living Flphyagn367ifficulty of Paying Living ExpensesNot on file03/06/2024Food InsecurityAnswerDate RecordedDo you worry your food will run out before you are able to buy more? 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 Gender IdentityNot on fileSexual OrientationNot on fileOccupationIndustryJob Start DateJob End Date[employer]Theory Comp studentNot on fileNot on fileNot on file Last Filed Vital Signs Vital SignReadingTime TakenCommentsBlood Keueebqw487/80002/04/2025 3:05 PM CDT Rjnek025102/04/2025 3:05 PM IUEPgdbcoirbyj94.8 ??C (98.2 ??F)07/09/2013 12:59 AM CSTRespiratory Zlnn116003/06/2024 12:54 PM CDTOxygen Zmrdnmfhxt80%02/04/2025 3:05 PM CDTInhaled Oxygen Concentration--Zuqjtq673.6 kg (235 lb 1.6 oz)02/04/2025 3:05 PM KVJVkxygi397.3 cm (5' 11)02/04/2025 3:05 PM CDTBody Mass Index32.79 02/04/2025 3:05 PM CDT Plan of Treatment Health MaintenanceDue DateLast DoneCommentsHIV for age 15-65002/29/2004Hepatitis C screening for age 18-7902/28/2007HPV series for age 9-45 (1 - 3-dose SCDM series)02/29/2016COVID-19 vaccine series (2024- season)2025 07/24/2022, 08/02/2021, 11/12/2020, Additional history existsInfluenza Vaccine (#1)/MI (ht and wt on same day) for age 18+02/04/2026 02/04/2025, 03/06/2024epression screening for age 12+6002/04/2025, 03/10/2024, 03/06/2024Lipids for age 35-440907/Tetanus booster /, 08/29/2016, 08/25/2002Hepatitis B series for 19+Completed 11/11/2000, 03/20/2000, 01/26/2000Pneumococcal series for age 6-49Aged OutNo longer eligible based on patient's age to complete this topic Procedures Procedure NamePriorityDate/TimeAssociated DiagnosisCommentsLIPID PANEL W REFLEX MEASURED NKVAfgdppc70/26/2024 1:51 PM CDT Lipid screening from Last 3 Months or Most Recently Relevant to Health Maintenance Results * LIPID PANEL W REFLEX MEASURED LDL [OTR9088} (03/06/2024 1:51 PM CDT)Component ValueRef RangeTest MethodAnalysis TimePerformed AtPathologist Signature CHOLESTEROL,OJOUB772819 - 199 mg/dL03/07/2024 2:34 AM [facility]-C[facility]TRAL LABORATORYComment: Cholesterol, Total Reference Ranges Desirable <200 mg/dL Borderline 200-239 mg/dL High >=240 mg/dL PXVRLGBXWGDSW02<150 mg/dL03/07/2024 2:34 AM [facility]AL LABORATORYHDL HHWQUXYDIOS62>40 mg/dL03/07/2024 2:34 AM [facility] LABORATORYNON-HDL IILXTKJHCUM122<145 mg/dl03/07/2024 2:34 AM [facility]AL LABORATORYCHOL/HDL RATIO4.27<4.50003/07/2024 2:34 AM [facility]AL LABORATORYLDL IXHIGHIKYHG394<=130 mg/dL03/07/2024 2:34 AM [facility]-CENTRAL LABORATORYVLDL ALPGXGNSWAQ25<=30 mg/dL03/07/2024 2:34 AM [facility]-CENTRAL LABORATORYPROVIDER ORDERED LUHPFXXPTMLU40/27/2024 2:34 AM [facility]ENTRAL LABORATORYSpecimen (Source)Anatomical Location / Laterality Collection Method / VolumeCollection TimeReceived TimeBloodBLOOD SPECIMEN / UnknownVenipuncture / Uoiclkz7703/06/2024 1:51 PM CDT03/06/2024 1:51 PM CDT Narrative Authorizing ProviderResult TypeResult StatusJebay Sandhu NPCHEMISTRYFinal ResultPerforming OrganizationAddressCity/State/ZIP CodePhone Number [facility] [address] [place] [phone] [place] [address] from Last 3 Months or Most Recently Relevant to Health Maintenance Insurance Care Teams Team MemberRelationshipSpecialtyStart DateEnd Date Katheryn Sandhu NP PCP - GeneralNurse Practitioner - Adult02/04/25
[2025-08-11 01:11] VITALS: BP 168/108; PULSE 92; RESP 16; TEMP 36.2; O2SAT 95; BMI 30.4
--- NOTE | 2025-08-11 01:40 | ED.GENADULT ---
HPI - General Adult General Chief complaint: Altered Mental Status Stated complaint: intoxication Time Seen by Provider: 08/11/25 01:12 Source: patient Mode of arrival: ambulatory Limitations: no limitations History of Present Illness HPI narrative: 35-year-old male is brought in by the manager culinary from his sober living facility because of a failed drug test. Reports that the patient was acting unusual. Patient reports that he is feeling fine. 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 He admits that he use a lot of Delsym cough syrup. 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 Per the patient's report, he tested positive for PCP on the drug test. The sober assisted living nursing director was concerned and called a detox facility per patient report. Patient denies any neurological changes, denies pain or any recent trauma. He is able to tell me details of his day, what he has eaten, how things went at work. He does tell me a lengthy story about prior diction to alcohol and marijuana when he was in grad school, admits that he has been sober from both of those things for the past 3 years. 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 But conservatorship was taken away from patient several years ago and given to family friends to care for those to individuals. Patient notes that he has been using dull some cough syrup regularly to help manage anxiety. He also has been in and out of rehab several times. He admits that he uses those living situations to cover his basic needs regularly as he is otherwise homeless since the family home was taken away from him. I reviewed the records and see that he was seen in January. This note is reviewed. At that time he was very irritable after taking dextro meth more phantom was found in someone else's car, sleeping. Patient also prescribed other anxiety medications. He states that he has not use those for the last month with the exception of a supply of Seroquel which he uses 100 mg about 2 times per week on average when he has difficulty sleeping. It sounds as though he is able to self administer that. He denies any use of that medication tonight. The remainder of the medications listed are not currently being used per his report. He denies any drug allergies. Denies any recent alcohol use or other hallucinogens. Says that he has been feeling medically well. Per the adult that dropped him off, there were no focal neurological changes that were of concern. Patient was not showing any signs of deficiencies in his extremities, gait abnormalities, speech abnormalities. Patient denies a history of stroke or other developmental issues. Past medical history notable for mental health issues and addiction, otherwise denies long-term health problems. ROS is negative times 12 systems completely today. Feeling well. No known drug allergies. Prior records reviewed. Related Data Home Medications ?Medication ?Instructions ?Recorded ?Confirmed buspirone 5 mg tablet 7.5 mg PO BID 01/17/25 01/17/25 clonidine HCl 0.1 mg tablet 0.1 mg PO BID 01/17/25 01/17/25 hydroxyzine HCl 25 mg tablet 25 mg PO BID 01/17/25 01/17/25 quetiapine 200 mg tablet,extended 200 mg PO ONCE PM 01/17/25 01/17/25 release 24 hr (Seroquel XR) trazodone 50 mg tablet 50 mg PO QHS PRN 01/17/25 01/17/25 Allergies Allergy/AdvReac Type Severity Reaction Status Date / Time No Known Drug Allergies Allergy Verified 01/16/25 21:54 PFSH [facility] Medical History Anxiety ?F41.9 - Anxiety disorder, unspecified (ICD-10) Migraine headache (07/18/11) ?G43.909 - Migraine, unspecified, not intractable, without status migrainosus (ICD-10) Family History Father Prostate cancer Aunt Breast cancer Mother Breast cancer Ovarian cancer Social History Narrative: Sober from alcohol x 2 years. 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 Living in a sober house in [place]. Denies recreational drug use. What is your current living situation?: I presently have a place to live Problems where you live: no known problems Problems where you live details: n/a In the past 12 months, utilities in danger of being shut off: no In past 12 months, lack of transportation kept you from medical appts, meetings, work, or getting things needed for daily living: no In the past 12 mos, have been you worried that your food would run out before you had money to buy more?: never true In the past 12 mos, the food you bought just didn't last and you didn't have money to buy more?: never true Highest level of school completed/degree received: Master's degree Smoking Status: Current every day smoker Do you use any of these nicotine containing products: Vaping Products How often do you have a drink containing alcohol: never AUDIT-C Alcohol total score: 0 Non-prescribed substance use: other Non-prescribed substance use details: Robitussin/DMX Caffeine: Yes How often does anyone, including family, friends and others, physically hurt you: never How often does anyone, including family, friends and others, insult or talk down to you: never How often does anyone, including family, friends and others, threaten you with harm: never How often does anyone, including family, friends and others, scream or curse at you: never service: No Exam Const: Vital Signs, click to edit/add: Vital Signs - 24 hr 08/11/25 01:11 08/11/25 03:36 Temperature 97.1 F L Pulse Rate [Pulse Oximeter] 92 77 Respiratory Rate 16 16 Blood Pressure [Ri ght Upper Arm] 168/108 H 138/77 Pulse Oximetry 95 98 Oxygen Delivery Me thod Room Air Room Air Documenting provider has reviewed patient's vital signs: yes Common normals: no apparent distress and alert General appearance: cooperative Other: Speech is slightly slow but no difficulty with word finding. Histories are logical, goal directed. They were a bit were ready but seemingly pertinent and logical. Grooming is normal. No obvious signs of being disheveled or unkempt. HENMT: Common normals: normocephalic, moist oral mucous membranes, oropharynx normal and dentition normal Head and scalp: normocephalic Mouth: oral and palatal mucosa normal Throat: posterior oropharynx normal Eye: Common normals: PERRL, EOMs intact bilaterally and conjunctivae normal General eye: normal appearance of both eyes Conjunctiva: conjunctiva(e) normal Pupil: PERRL Neck & C-Spine: Common normals: full ROM, no lymphadenopathy and no meningeal signs General: normal visual inspection Resp: Common normals: normal respiratory effort, no use of accessory muscles and clear to auscultation bilaterally Effort & inspection: able to speak in complete sentences Auscultation: clear to auscultation bilaterally Cardio: Common normals: regular rate, regular rhythm, S1 normal heart sound, S2 normal heart sound and no murmurs Rate: regular rate Rhythm: regular rhythm Heart sounds: S1 normal and S2 normal GI: Common normals: Normal to inspection, nondistended, normoactive bowel sounds present, soft to palpation, non-tender, no hepatosplenomegaly and no masses Palpation: soft and no hepatosplenomegaly Back & Pelvis: Common normals: thoracic and lumbar spine normal to inspection Extremity: Common normals: normal to inspection and normal capillary refill General: normal exam except as noted Neuro: Gómez Coma Scale: document GCS findings (15) Common normals: CN's II-XII intact bilaterally, moves all extremities, no focal motor deficits and no sensory deficits noted Sensorium/orientation: alert Meningeal signs: no meningeal signs Coordination/balance: yrsuyc-zu-hcri test normal and tandem gait normal Speech: speech normal Gait (neuro): normal gait Coordination: lrzakn-vm-unjm test normal, Romberg test normal and tandem gait normal Psych: Common normals: cooperative Appearance: grossly normal Attitude: engaged Activity/motor behavior: appropriate eye contact Attention/concentration: attention grossly intact Memory/cognition: memory grossly intact Insight: insight good Judgement: judgment good Other: Speech is slightly slow but goal directed. Skin: Common normals: no rashes or lesions noted General skin exam: no rashes or lesions noted Course Course ED Course: 35-year-old male brought over for altered mental status from his sober living facility. Patient is not showing any signs of neurological compromise on initial exam. I suspect that he is intoxicated on dex term at the morphine and which he admits to regularly using. He is not suicidal, delusional or any threat to himself at this time. Will obtain typical mental health labs, repeat drug screen. If there are no abnormalities, patient can be medically cleared and return to his halfway. Update: Labs are all normal as expected. Patient is medically cleared and may be discharged to his assisted living at this time if they are willing to have him back tonight. If not, he will need to stay and have outreach and education social worker attempt placement in the morning. Reevaluation(s) Reevaluation #1: update: No transport was available overnight. Patient discharged back to his sober living facility by taxi at about 720 in the morning. No further care needed overnight, remained appropriate. Vital Signs Vital signs: Initial Vital Signs Temperature 97.1 F L 08/11/25 01:11 Temperature Source Temporal Artery Scan 08/11/25 01:11 Pulse Rate 92 08/11/25 01:11 Respiratory Rate 16 08/11/25 01:11 Blood Pressure 168/108 H 08/11/25 01:11 Blood Pressure Mean 128 H 08/11/25 01:11 Blood Pressure Position Semi-Fowlers 08/11/25 01:11 Pulse Oximetry 95 08/11/25 01:11 Oxygen Delivery Method Room Air 08/11/25 01:11 Vital Signs Temperature 97.1 F L 08/11/25 01:11 Pulse Rate 92 08/11/25 01:11 Respiratory Rate 16 08/11/25 01:11 Blood Pressure 168/108 H 08/11/25 01:11 Pulse Oximetry 95 08/11/25 01:11 Oxygen Delivery Method Room Air 08/11/25 01:11 Temperature 97.1 F L 08/11/25 01:11 Pulse Rate 77 08/11/25 03:36 Respiratory Rate 16 08/11/25 03:36 Blood Pressure 138/77 08/11/25 03:36 Pulse Oximetry 98 08/11/25 03:36 Oxygen Delivery Method Room Air 08/11/25 03:36 Medical Decision Making Lab Data Lab results reviewed: Yes I reviewed the patient's lab results Lab results narrative: Labs reassuring. Labs: Lab Results 08/11/25 08/11/25 Range/Units 01:30 01:50 WBC 9.34 (4.50-11.00) K/uL RBC 5.22 (4.30-5.90) m/uL Hgb 14.5 (13.5-17.5) gm/dL Hct 42.8 (37.0-53.0) % MCV 82 (80-100) fL MCH 28 (26-34) pg MCHC 34 (32-36) gm/dL RDW Coeff of Sangeeta 12.9 (11.5-15.5) % Plt Count 211 (140-440) K/uL Neut % (Auto) 63.3 (42.0-72.0) % Lymph % (Auto) 28.2 (20-44) % [place] % (Auto) 5.9 (0.0-11.0) % Eos % (Auto) 2.1 (0.0-7.0) % Baso % (Auto) 0.3 (0.0-3.0) % Neut # (Auto) 5.91 (1.7-7.0) K/uL Lymph # (Auto) 2.63 (0.90-2.90) K/uL [place] # (Auto) 0.60 (0.00-0.90) K/UL Eos # (Auto) 0.20 (0.00-0.50) K/uL Baso # (Auto) 0.03 (0.00-0.30) K/uL Abs Immat Gran (auto) 0.02 (0.00-0.30) K/uL Imm/Tot Granulo (auto) 0.2 % Sodium 134 L (135-149) mmol/L Potassium 3.0 L (3.6-5.1) mmol/L Chloride 98 (96-114) mmol/L Carbon Dioxide 27 (20-32) mmol/L Anion Gap 9 (7-15) mEq/L BUN 18 (5-24) mg/dL Creatinine 0.9 (0.5-1.5) mg/dL Estimated Creat Clear 117.16 Estimated GFR 114 ml/min Glucose 103 (60-115) mg/dL Calcium 9.0 (8.4-10.6) mg/dL Total Bilirubin 0.6 (0.1-1.5) mg/dL AST 31 (12-35) U/L ALT 26 (4-50) U/L Alkaline Phosphatase 92 (40-150) U/L Total Protein 6.8 (6.0-8.3) g/dL Albumin 4.4 (3.3-5.0) g/dL Salicylates < 1.0 L (1.0-10) mg/dL Urine Opiates Screen Negative (Negative) Ur Oxycodone Screen Negative (Negative) Urine Methadone Screen Negative (Negative) Acetaminophen < 10.0 (10.0-30.0) ug/mL Ur Barbiturates Screen Negative (Negative) U Tricyclic Antidepress Negative (Negative) Ur Phencyclidine Scrn Negative (Negative) Ur Amphetamines Screen Negative (Negative) U Methamphetamines Scrn Negative (Negative) U Benzodiazepines Scrn Negative (Negative) Urine Cocaine Screen Negative (Negative) U Marijuana (THC) Screen Negative (Negative) Ur Drug Screen Comment See Note Ethyl Alcohol < 0.01 (0.01-0.03) % Discharge Plan Discharge Clinical Impression: Substance abuse Patient Disposition: Home w/ Parent or Adult Condition: Stable Instructions: Polysubstance Use Disorder (ED) Additional Instructions: As we discussed, your symptoms are consistent with dextromethorphan intoxication. Your labs are all normal, your neurological exam is normal. We are not detecting any signs of stroke, dangerous intoxication or medical emergency. Urine drug screen here is normal but you are correct that drug screens can be abnormal for hallucinogens from heavy DXM use. I do recommend that you discontinue that substance. Continue working toward her goals for sobriety, good health, successful working and Education. Your medically cleared to return to your sober living facility at this time. Activity Level: No Restrictions Discharge Diet: Regular Prescriptions: No Action buspirone 5 mg tablet 7.5 mg PO BID quetiapine [Seroquel XR] 200 mg tablet extended release 24 hr 200 mg PO ONCE PM Rx Instructions: administer on day 3 of therapy trazodone 50 mg tablet 50 mg PO QHS PRN hydroxyzine HCl 25 mg tablet 25 mg PO BID clonidine HCl 0.1 mg tablet 0.1 mg PO BID Follow Up/Referrals: Provider,Not a Local [Primary Care Provider, Family Practice] Stand Alone Forms: [facility] Info Instructions
[2025-08-11 01:54] LABS: Cannabinoid Screen Urine Negative (Negative); Methamphetamines Screen Urine Negative (Negative); Tricyclic Antidepressant Urine Negative (Negative)
[2025-08-11 01:59] LABS: Hematocrit* 42.8 % (37.0-53.0); Hemoglobin* 14.5 gm/dL (13.5-17.5); Immature Granulocytes Abs Auto 0.02 K/uL (0.00-0.30); Immature Granulocytes Pct Auto 0.2 %; Lymphocytes Absolute Auto 2.63 K/uL (0.90-2.90); Mean Corpuscular HGB Conc 34 gm/dL (32-36); Mean Corpuscular Hemoglobin 28 pg (26-34); Mean Corpuscular Volume 82 fL (80-100); RDW Coefficient of Variation % 12.9 % (11.5-15.5); Red Blood Count* 5.22 m/uL (4.30-5.90); White Blood Count* 9.34 K/uL (4.50-11.00)
[2025-08-11 02:00] LABS: Slide Review Reflex No
[2025-08-11 02:12] LABS: Albumin* 4.4 g/dL (3.3-5.0); Chloride* 98 mmol/L (96-114); Potassium* 3.0 mmol/L (3.6-5.1); Sodium* 134 mmol/L (135-149)
[2025-08-11 02:14] LABS: Alanine Aminotransferase* 26 U/L (4-50); Aspartate Amino Transferase* 31 U/L (12-35); Blood Urea Nitrogen* 18 mg/dL (5-24); Creatinine* 0.9 mg/dL (0.5-1.5); Est. Creatinine Clearance* 117.16; Estimated Glomerular Filt Rate 114 ml/min
[2025-08-11 02:15] LABS: Alkaline Phosphatase* 92 U/L (40-150); Anion Gap 9 mEq/L (7-15); Bilirubin Total* 0.6 mg/dL (0.1-1.5); Calcium* 9.0 mg/dL (8.4-10.6); Carbon Dioxide* 27 mmol/L (20-32); Glucose* 103 mg/dL (60-115); Total Protein* 6.8 g/dL (6.0-8.3)
[2025-08-11 02:16] LABS: Acetaminophen* < 10.0 ug/mL (10.0-30.0); Ethanol* < 0.01 % (0.01-0.03); Salicylate* < 1.0 mg/dL (1.0-10)
[2025-08-11 03:36] VITALS: BP 138/77; PULSE 77; RESP 16; O2SAT 98
== END 2025-08-11 07:26 | disposition home or self-care (01) ==
PROVIDERS: Emergency Provider Family Medicine
DX: F19.129 Other psychoactive substance abuse with intoxication, unspecified (principal); T48.3X1A Poisoning by antitussives, accidental (unintentional), initial encounter
CPT/HCPCS: 36415; 80053; 80143; 80179; 80306; 82077; 85025; 99283; 99284